=== PATIENT | female | born 1985 | race Caucasian/White ===

== ENCOUNTER 2017-12-18 08:59 | Emergency (ER) | payer MEDICAID ==
[~2017-12-18] VITALS: Ht 167.6 cm; Wt 65.8 kg
[~2017-12-18 08:59] MED LIST: nasonex; pro air; singulair; symbicort
[2017-12-18 09:03] VITALS: BP_SYST 112
[2017-12-18] MEDS ORDERED: LevALBUTEROL HCL 1.25 MG/0.5 ML *CONC.* VIAL.NEB (XOPENEX CONC.) INH ONE ×2 (09:15→09:16)
[2017-12-18] MEDS ORDERED: methylPREDNISolone SOD SUCC/PF 62.5 MG/ML VIAL IM ONE (09:15)
[2017-12-18 10:23] VITALS: BP_SYST 110
== END 2017-12-18 10:23 | disposition home or self-care (01) ==
LOC: SED 08:59
DX: J45.901 Unspecified asthma with (acute) exacerbation (principal)
CPT/HCPCS: 71045; 81025; 94640; 96372; 99283; J2930

== ENCOUNTER 2020-04-28 13:31 | Emergency (ER) | payer MEDICAID ==
[~2020-04-28] VITALS: Ht 167.6 cm; Wt 73.5 kg
[2020-04-28 13:47] VITALS: BP_SYST 129
[2020-04-28] MEDS ORDERED: ONDANSETRON 4 MG ODT TAB PO ONE (14:00)
[2020-04-28] MEDS ORDERED: KETOROLAC TROMETHAMINE 60 MG/2 ML VIAL IM ONE (14:45)
[2020-04-28 15:23] VITALS: BP_SYST 132
[2020-04-28] MEDS ORDERED: ONDANSETRON 4 MG ODT TAB ONE (15:23)
== END 2020-04-28 15:23 | disposition home or self-care (01) ==
LOC: SED 13:31
DX: S09.90XA Unspecified injury of head, initial encounter (principal); J45.909 Unspecified asthma, uncomplicated; W22.8XXA Striking against or struck by other objects, initial encounter; Y93.89 Activity, other specified; Y92.89 Other specified places as the place of occurrence of the external cause; Y99.8 Other external cause status
CPT/HCPCS: 81002; 81025; 96372; 99283; J1885; Q0162

== ENCOUNTER 2023-01-03 08:44 | Emergency (ER) | payer MEDICAID ==
[~2023-01-03] VITALS: Ht 167.6 cm; Wt 81.6 kg
[2023-01-03 08:45] VITALS: BP_SYST 136
--- NOTE | 2023-01-03 08:45 | NUR ---
BROUGHT BACK TO BED #7 AND TRIAGED. REPORT GIVEN TO CARMINA
--- NOTE | 2023-01-03 08:59 | NUR ---
DR LEWIS AT BEDSIDE FOR EVALUATION
[2023-01-03 09:07] LABS: BILIRUBIN,URINE NEGATIVE (NEGATIVE); BLOOD, URINE TRACE (NEGATIVE); CLARITY/URINE CLEAR (CLEAR); COLOR,URINE YELLOW (YELLOW); GLUCOSE,URINE NEGATIVE (NEGATIVE); KETONES,URINE NEGATIVE (NEGATIVE); LEUKOCYTE ESTERASE ,URINE 1+ (NEGATIVE); NITRITE, URINE NEGATIVE (NEGATIVE); PH,URINE 6.5 (5.0-8.0); PROTEIN URINE NEGATIVE (NEGATIVE)
[2023-01-03 09:13] LABS: BASOPHILS % (AUTO) 0.4 % (0.0-2.0); EOSINOPHILS # (AUTO) 0.3 K/uL (0.0-0.4); EOSINOPHILS % (AUTO) 6.6 % (0.0-4.0); HEMATOCRIT 42.2 % (36-48); HEMOGLOBIN 14.1 g/dL (12.0-16.0); LYMPHOCYTES # (AUTO) 1.3 K/uL (1.0-5.5); LYMPHOCYTES % (AUTO) 27.3 % (20.5-51.5); MEAN CORPUSCULAR HEMOGLOBIN 33 pg (27-31); MEAN CORPUSCULAR HGB CONC 34 % (32-36); MEAN CORPUSCULAR VOLUME 99 fL (79.0-98.0); MONOCYTES # (AUTO) 0.4 K/uL (0.0-1.0); MONOCYTES % (AUTO) 7.9 % (1.7-9.3); NEUTROPHILS # (AUTO) 2.7 K/uL (1.8-7.7); NEUTROPHILS % (AUTO) 57.8 % (40.0-70.0); PLATELET COUNT (AUTO) 213 K/uL (130-430); RED BLOOD CELL COUNT(AUTO) 4.26 MIL/uL (4.2-6.2); RED CELL DISTRIBUTION WIDTH 12.5 % (9.0-15.0); WHITE BLOOD COUNT (AUTO) 4.7 K/uL (4.8-10.8)
--- NOTE | 2023-01-03 09:24 | NUR ---
PT COMES TO ER WITH C.O GENERALIZED ABD PAIN SINCE YESTERDAY MORNING. REPORTS SHE WAS AT [facility] YESTERDAY AND WAS ORDERED AND CT SCAN AND AN US, BUT PAIN PERISTS DESPITE NORCO AND TYLENOL RX. PT DENIES ANY NAUSEA TA THIS TIME, WAS GIVEN ZOFRAN AND LAST TAKEN THIS AM. PT IN NAD. RESP EVEN AND UNLABORED,ON RA @98%. ABD ROUND.SOFT, MILDLY TENDER WITH PALPATION. DENIES ANY DYSURIA. URINE COLLECTED AND PROCESSED TO LAB.
[2023-01-03 09:25] LABS: CALCIUM 8.8 mg/dL (8.4-11.0); CREATININE 0.84 mg/dL (0.55-1.30)
[2023-01-03 09:31] LABS: ALBUMIN 3.6 g/dL (3.4-4.8); TOTAL BILIRUBIN 0.8 mg/dL (0.0-1.0)
[2023-01-03 09:38] LABS: BACTERIA,URINE RARE /HPF (None Seen); MUCUS,URINE 1+ /LPF (None Seen); RBC,URINE 0-3 /HPF (0-3)
--- NOTE | 2023-01-03 10:06 | NUR ---
PT WENT TO US WITH TECH
[2023-01-03] MEDS ORDERED: MORPHINE 4 MG INJ. 4 MG/ML VIAL IVP ONE (10:45)
[2023-01-03] MEDS ORDERED: METHYLPREDNISOLONE SOD SUCC 40 MG/ML VIAL IVP ONE (12:30)
[2023-01-03] MEDS ORDERED: IPRATROPIUM/ALBUTEROL SULFATE 3 ML AMPUL.NEB (DUONEB) INH ONE (12:30)
[2023-01-03] MEDS ORDERED: IPRATROPIUM/ALBUTEROL SULFATE 3 ML AMPUL.NEB (DUONEB) ONE (12:36)
--- NOTE | 2023-01-03 12:41 | NUR ---
PT HAD SOB AND C/O WHEEZING AND S/S OF ASTHMA ATTACK, RR 44, O2 SAT 91%. PT PLACED ON 02 N/C AT 2LPM. REPORTED TO DR. LEWIS, RECEIVED ORDER FOR SOLUMEDROL 125MG IVP AND DUONEB HHN X1. ORDERS CARRIED OUT. R/T GAVE BREATHING TX, SOLUMEDROL IVP GIVEN. PT O2 SAT NOW 100%. PT RR WNL. DENIES PAIN.
--- NOTE | 2023-01-03 12:58 | NUR ---
Nance of care received, pt A&Ox4, VSS, pt states she feels better after breathing treatment, will cont to monitor.
[2023-01-03] MEDS ORDERED: CEPH-548 PO (14:41)
[2023-01-03] MEDS ORDERED: IBUP-1969 PO (14:43)
[2023-01-03 15:23] VITALS: BP_SYST 109
--- NOTE | 2023-01-03 15:25 | NUR ---
Patient given written and verbal discharge instructions and verbalizes understanding. ER MD discussed with patient the results and treatment provided. Patient in stable condition. ID arm band removed. Rx of Cephalexin and Ibuprofen given. Patient educated on pain management and to follow up with PMD. Pain Scale 2/10. Opportunity for questions provided and answered. Medication side effect fact sheet provided.
== END 2023-01-03 15:25 | disposition home or self-care (01) ==
LOC: SED 08:44
DX: N39.0 Urinary tract infection, site not specified (principal); N83.201 Unspecified ovarian cyst, right side; K52.9 Noninfective gastroenteritis and colitis, unspecified; R10.31 Right lower quadrant pain; J45.909 Unspecified asthma, uncomplicated; Z79.899 Other long term (current) drug therapy
CPT/HCPCS: 99285; 74177; 96374; 76856; 96375; 80053; 81000; 85025; 87086; 36415; 76376; 94640; 81025; J2270; Q9967; J1030

== ENCOUNTER 2024-01-08 08:40 | Emergency (ER) | payer MEDICAID, OTHER ==
[~2024-01-08] VITALS: Ht 167.6 cm; Wt 81.6 kg
[~2024-01-08 08:40] MED LIST changes: +CEPH-548 PO; +IBUP-1969 PO
[2024-01-08 08:55] VITALS: BP_SYST 127; PULSE 64; RESP 17; TEMP 97.7; O2SAT 99
[2024-01-08 09:36] LABS: BASOPHILS % (AUTO) 0.9 % (0.0-2.0); EOSINOPHILS # (AUTO) 0.4 K/uL (0.0-0.4); EOSINOPHILS % (AUTO) 8.1 % (0.0-4.0); HEMATOCRIT 42.3 % (36-48); HEMOGLOBIN 14.3 g/dL (12.0-16.0); LYMPHOCYTES # (AUTO) 1.4 K/uL (1.0-5.5); LYMPHOCYTES % (AUTO) 31.9 % (20.5-51.5); MEAN CORPUSCULAR HEMOGLOBIN 33 pg (27-31); MEAN CORPUSCULAR HGB CONC 34 % (32-36); MEAN CORPUSCULAR VOLUME 98 fL (79.0-98.0); MONOCYTES # (AUTO) 0.5 K/uL (0.0-1.0); MONOCYTES % (AUTO) 10.3 % (1.7-9.3); NEUTROPHILS # (AUTO) 2.2 K/uL (1.8-7.7); NEUTROPHILS % (AUTO) 48.8 % (40.0-70.0); PLATELET COUNT (AUTO) 255 K/uL (130-430); RED BLOOD CELL COUNT(AUTO) 4.33 MIL/uL (4.2-6.2); RED CELL DISTRIBUTION WIDTH 12.7 % (9.0-15.0); WHITE BLOOD COUNT (AUTO) 4.5 K/uL (4.8-10.8)
[2024-01-08 10:21] VITALS: BP_SYST 127; PULSE 64; RESP 17; TEMP 97.7; O2SAT 99
== END 2024-01-08 10:20 | disposition home or self-care (01) ==
LOC: SED 08:40
DX: O20.0 Threatened abortion (principal); O99.512 Diseases of the respiratory system complicating pregnancy, second trimester; J45.909 Unspecified asthma, uncomplicated; Z79.899 Other long term (current) drug therapy
CPT/HCPCS: 36415; 84702; 85025; 99283

== ENCOUNTER 2024-01-10 08:29 | Emergency (ER) | payer OTHER ==
[~2024-01-10] VITALS: Ht 167.6 cm; Wt 81.6 kg
[2024-01-10 08:30] VITALS: BP_SYST 135; PULSE 87; RESP 19; TEMP 98; O2SAT 98
[2024-01-10 09:06] LABS: BILIRUBIN,URINE NEGATIVE (NEGATIVE); BLOOD, URINE 2+ (NEGATIVE); CLARITY/URINE CLEAR (CLEAR); GLUCOSE,URINE NEGATIVE (NEGATIVE); KETONES,URINE NEGATIVE (NEGATIVE); LEUKOCYTE ESTERASE ,URINE NEGATIVE (NEGATIVE); NITRITE, URINE NEGATIVE (NEGATIVE); PROTEIN URINE NEGATIVE (NEGATIVE); UROBILINOGEN,URINE 0.2 (0.2-1.0)
[2024-01-10 09:09] LABS: COLOR,URINE STRAW (YELLOW)
[2024-01-10 09:36] LABS: BACTERIA,URINE None Seen /HPF (None Seen); WBC,URINE NONE SEEN /HPF (0-3)
[2024-01-10 14:02] VITALS: BP_SYST 135; PULSE 87; RESP 19; TEMP 98; O2SAT 98
== END 2024-01-10 13:44 | disposition home or self-care (01) ==
LOC: SED 08:29
DX: O20.9 Hemorrhage in early pregnancy, unspecified (principal); O99.511 Diseases of the respiratory system complicating pregnancy, first trimester; J45.909 Unspecified asthma, uncomplicated; Z79.899 Other long term (current) drug therapy
CPT/HCPCS: 36415; 76817; 81000; 81001; 81015; 81025; 84702; 86901; 99284